=== PATIENT | female | born 1965 | race Caucasian/White ===

== ENCOUNTER 2024-05-31 00:48 | Emergency (ER) | payer OTHER ==
[2024-05-31] MEDS ORDERED: Lidocaine 2% with EPINEPHrine 1:100,000 20 ML MDV INFILT ONE (00:49)
[2024-05-31 01:28] LABS: BASOPHILS PERCENT AUTO 0.5 % (0.2-1.5); EOSINOPHILS ABSOLUTE AUTO 0.2 x10-3/uL (0.0-0.8); EOSINOPHILS PERCENT AUTO 3.4 % (0.6-8.1); HEMATOCRIT 42.1 % (34.2-48.2); HEMOGLOBIN 14.2 g/dL (11.4-15.5); LYMPHOCYTES ABSOLUTE AUTO 2.8 x10-3/uL (1.0-4.4); LYMPHOCYTES PERCENT AUTO 47.2 % (18.4-52.1); MEAN CORPUSCULAR HEMOGLOBIN 32.4 pg (23.9-33.9); MEAN CORPUSCULAR HGB CONC 33.8 g/dL (31.9-34.8); MEAN CORPUSCULAR VOLUME 95.8 fL (76.7-100.5); MEAN PLATELET VOLUME 7.3 fL (7.1-12.4); MONOCYTES ABSOLUTE AUTO 0.6 x10-3/uL (0.3-1.0); MONOCYTES PERCENT AUTO 10.8 % (4.4-15.7); NEUTROPHILS ABSOLUTE AUTO 2.3 x10-3/uL (1.5-6.3); NEUTROPHILS PERCENT AUTO 38.2 % (30.8-76.2); PLATELET COUNT,PLT 283 x10(3)uL (151-488); RED BLOOD CELL COUNT 4.39 x10(6)uL (3.60-5.20); RED CELL DISTRIBUTION WIDTH 12.9 % (12.3-16.5); WHITE BLOOD CELL COUNT,WBC 5.9 x10-3/uL (3.0-10.3)
[2024-05-31 01:29] LABS: ALANINE AMINOTRANSFERASE,ALT 27 U/L (12-36); ALBUMIN 3.7 g/dL (3.2-4.6); ALKALINE PHOSPHATASE 79 IU/L (56-112); ASPARTATE AMNIOTRANSFERASE,AST 25 IU/L (5-25); BILIRUBIN TOTAL 0.5 mg/dL (0.1-1.3); BLOOD UREA NITROGEN,BUN 9 mg/dL (7-18); BUN/CREATININE RATIO 11.3 (9-20); CALCIUM 8.4 mg/dL (8.6-10.2); CARBON DIOXIDE,CO2 30 mmol/L (21-32); CHLORIDE,CL 101 mmol/L (100-110); CREATININE 0.8 mg/dL (0.55-1.02); ESTIMATED GFR 84 mL/min (>60); GLUCOSE RANDOM 108 mg/dL (80-116); POTASSIUM,K 3.4 mmol/L (3.5-5.3); PROTEIN TOTAL,TP 7.4 g/dL (6.0-8.0); SODIUM,NA 140 mmol/L (135-145)
== END 2024-05-31 02:30 | disposition home or self-care (01) ==
LOC: FB.ED 00:48 → EDBD 00:48 → FB.ED 02:30
DX: S06.0X1A Concussion with loss of consciousness of 30 minutes or less, initial encounter (principal); S01.01XA Laceration without foreign body of scalp, initial encounter; Z79.899 Other long term (current) drug therapy; W22.8XXA Striking against or struck by other objects, initial encounter
CPT/HCPCS: 12004; 36415; 70450; 80053; 80307; 85025; 99284